=== PATIENT | female | born 1980 | race Caucasian/White ===

== ENCOUNTER 2018-02-14 08:37 | Emergency (ER) | payer SELFPAY ==
[~2018-02-14] VITALS: Ht 180.3 cm; Wt 114.0 kg
[~2018-02-14 08:37] MED LIST: BACT2OIN TOPICAL; BACT800T5 PO; DOXY100C PO
[2018-02-14 08:44] VITALS: BP 168/106; PULSE 88; RESP 16; TEMP 98.1; O2SAT 97
[2018-02-14] MEDS ORDERED: SODIUM CHLOR 0.9% 1000 ML INJ 1,000 ML IV ONE (09:08)
[2018-02-14] MEDS ORDERED: METOCLOPRAMIDE HCL 10 MG/2 ML VIAL IVP ONE (09:15)
[2018-02-14] MEDS ORDERED: diphenhydrAMINE HCL 50 MG/ML VIAL IVP ONE (09:15)
[2018-02-14] MEDS ORDERED: SODIUM CHLORIDE 0.9% FLUSH 10 ML FLUSH IVF PRN (09:15)
[2018-02-14] MEDS ORDERED: KETOROLAC TROMETHAMINE 30 MG/ML (IVP) VIAL IVP ONE (09:15)
--- NOTE | 2018-02-14 09:24 | PD ---
HPI Chief Complaint: Numbness/Tingling Time Seen by Provider: 08:51 Travel History International Travel<30 days: No Contact w/Intl Traveler<30days: No Traveled to known affect area: No History of Present Illness HPI The patient is a 37-year-old female who presents to the emergency department via private vehicle after she was electrocuted on Tuesday. The patient states she got out of the pool on Tuesday at approximately 6:30 PM and went to flip a switch at the pool pump, she states she struck another box and felt electrocution to the third digit of the right hand. The patient denies any burn renetta over the affected area, however, has had some numbness and tingling of the third digit of the right hand that goes up the right arm. She is also complained of a mild headache which will not alleviated self with Excedrin at home. She denies any weakness of the right upper extremity, denies any burn renetta to the right upper extremity denies any burn hein or exit wounds to the feet or other extremities. Symptoms are moderate. She denies any arrhythmia, shortness of breath, or chest pain. Symptoms are moderate. PFSH Past Medical History Anemia: Yes Asthma: Yes (ASTHMA) Diabetes: No Diminished Hearing: No Reproductive: Yes (FALLOPIAN TUBE SURGERY ON LEFT/CYST REMOVED O L OVARY) Respiratory: Yes (ASTHMA CHILD) ?: Not : 1 Para: 1 Past Surgical History Gynecologic Surgery: Yes (LEFT FALLOPIAN TUBE SURGERY FOR CYST) Hysterectomy: Yes (PARTIAL ) Joint Replacement: No Oral Surgery: Yes (TONSILLECTOMY) Pacemaker: No Tonsillectomy: Yes Other Surgery: Yes (PARTIAL HYSTERECTOMY) Social History Alcohol Use: Yes (SOCIALLY) Tobacco Use: Yes (1/2 TO FULL PPD) Substance Use: No Allergies-Medications (Allergen,Severity, Reaction): Coded Allergies: *MDRO Multi-Drug Resistant Organism (Verified Adverse Reaction, Unknown, 07/23/16) 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) Reported Meds & Prescriptions Reported Meds & Active Scripts Active Doxycycline Hyclate 100 Mg Cap 100 Mg PO BID 7 Days Bactrim DS (Sulfamethoxazole-Trimethoprim) 800-160 Mg Tab 1 Tab PO BID Bactroban Topical (Mupirocin) 2% Oint 1 Appl TOPICAL BID Review of Systems Except as stated in HPI: all other systems reviewed are Neg Eyes: No: Blurred Vision HENT: Positive: Headaches, No: Neck Pain Cardiovascular: No: Chest Pain or Discomfort, Palpitations, Irregular Rhythm Respiratory: No: Shortness of Breath Gastrointestinal: No: Nausea, Vomiting, Abdominal Pain Musculoskeletal: Positive: Pain, No: Edema Skin: No Other (Denies any visible burn renetta or open skin at the point of entry on the third digit right hand) Neurologic: Positive: Paresthesia, Sensory Disturbance Physical Exam Narrative GENERAL: Awake, alert, pleasant 37-year-old female who appears her stated age and is in no acute respiratory distress. SKIN: Focused skin assessment warm/dry. HEAD: Atraumatic. Normocephalic. EYES: Pupils equal and round. No scleral icterus. No injection or drainage. ENT: No nasal bleeding or discharge. Mucous membranes pink and moist. NECK: Trachea midline. No JVD. CARDIOVASCULAR: Regular rate and rhythm. No murmur appreciated. RESPIRATORY: No accessory muscle use. Clear to auscultation. Breath sounds equal bilaterally. MUSCULOSKELETAL: No obvious deformities. No clubbing. No cyanosis. No edema. No visible burn wound to the third digit right hand. The feet were inspected, there were no visible burn wounds or exit wounds. Positive right radial pulse. Intrinsic hand muscle of the right hand are intact. NEUROLOGICAL: Awake and alert. No obvious cranial nerve deficits. Motor grossly within normal limits. Normal speech. Sensation is intact on the ulna and radial aspect of the right hand, mild decreased sensation to soft touch over the volar aspect of the third digit, however, it is present on the second digit and fourth digit. PSYCHIATRIC: Appropriate mood and affect; insight and judgment normal. Data Data Last Documented VS Vital Signs Date Time Temp Pulse Resp B/P (MAP) Pulse Ox O2 Delivery O2 Flow Rate FiO2 02/14/18 08:44 98.1 88 16 168/106 (126) 97 Orders Orders Complete Blood Count With Diff (02/14/18 09:08) Comprehensive Metabolic Panel (02/14/18 09:08) Ecg Monitoring (02/14/18 09:08) Iv Access Insert/Monitor (02/14/18 09:08) Oximetry (02/14/18 09:08) Sodium Chloride 0.9% Flush (Ns Flush) (02/14/18 09:15) Ketorolac Inj (Toradol Inj) (02/14/18 09:15) Diphenhydramine Inj (Benadryl Inj) (02/14/18 09:15) Metoclopramide Inj (Reglan Inj) (02/14/18 09:15) Sodium Chlor 0.9% 1000 Ml Inj (Ns 1000 M (02/14/18 09:08) Creatine Kinase (Cpk) (02/14/18 09:08) Electrocardiogram (02/14/18 ) Labs Laboratory Tests Test 02/14/18 09:15 White Blood Count 5.3 TH/MM3 Red Blood Count 4.84 MIL/MM3 Hemoglobin 14.8 GM/DL Hematocrit 43.6 % Mean Corpuscular Volume 90.0 FL Mean Corpuscular Hemoglobin 30.7 PG Mean Corpuscular Hemoglobin Concent 34.1 % Red Cell Distribution Width 13.4 % Platelet Count 202 TH/MM3 Mean Platelet Volume 9.5 FL Neutrophils (%) (Auto) 67.4 % Lymphocytes (%) (Auto) 23.3 % Monocytes (%) (Auto) 6.9 % Eosinophils (%) (Auto) 1.9 % Basophils (%) (Auto) 0.5 % Neutrophils # (Auto) 3.6 TH/MM3 Lymphocytes # (Auto) 1.2 TH/MM3 Monocytes # (Auto) 0.4 TH/MM3 Eosinophils # (Auto) 0.1 TH/MM3 Basophils # (Auto) 0.0 TH/MM3 CBC Comment DIFF FINAL Differential Comment Blood Urea Nitrogen 10 MG/DL Creatinine 1.00 MG/DL Random Glucose 92 MG/DL Total Protein 7.5 GM/DL Albumin 3.9 GM/DL Calcium Level 9.0 MG/DL Alkaline Phosphatase 90 U/L Aspartate Amino Transf (AST/SGOT) 39 U/L Alanine Aminotransferase (ALT/SGPT) 49 U/L Total Bilirubin 0.5 MG/DL Sodium Level 141 MEQ/L Potassium Level 3.9 MEQ/L Chloride Level 107 MEQ/L Carbon Dioxide Level 24.2 MEQ/L Anion Gap 10 MEQ/L Estimat Glomerular Filtration Rate 63 ML/MIN Total Creatine Kinase 192 U/L MDM Medical Decision Making Medical Screen Exam Complete: Yes Emergency Medical Condition: Yes Medical Record Reviewed: Yes Interpretation(s) EKG reveals normal sinus rhythm with a rate of 76. Nonspecific T wave changes. Laboratory Tests Test 02/14/18 09:15 White Blood Count 5.3 TH/MM3 Red Blood Count 4.84 MIL/MM3 Hemoglobin 14.8 GM/DL Hematocrit 43.6 % Mean Corpuscular Volume 90.0 FL Mean Corpuscular Hemoglobin 30.7 PG Mean Corpuscular Hemoglobin Concent 34.1 % Red Cell Distribution Width 13.4 % Platelet Count 202 TH/MM3 Mean Platelet Volume 9.5 FL Neutrophils (%) (Auto) 67.4 % Lymphocytes (%) (Auto) 23.3 % Monocytes (%) (Auto) 6.9 % Eosinophils (%) (Auto) 1.9 % Basophils (%) (Auto) 0.5 % Neutrophils # (Auto) 3.6 TH/MM3 Lymphocytes # (Auto) 1.2 TH/MM3 Monocytes # (Auto) 0.4 TH/MM3 Eosinophils # (Auto) 0.1 TH/MM3 Basophils # (Auto) 0.0 TH/MM3 CBC Comment DIFF FINAL Differential Comment Blood Urea Nitrogen 10 MG/DL Creatinine 1.00 MG/DL Random Glucose 92 MG/DL Total Protein 7.5 GM/DL Albumin 3.9 GM/DL Calcium Level 9.0 MG/DL Alkaline Phosphatase 90 U/L Aspartate Amino Transf (AST/SGOT) 39 U/L Alanine Aminotransferase (ALT/SGPT) 49 U/L Total Bilirubin 0.5 MG/DL Sodium Level 141 MEQ/L Potassium Level 3.9 MEQ/L Chloride Level 107 MEQ/L Carbon Dioxide Level 24.2 MEQ/L Anion Gap 10 MEQ/L Estimat Glomerular Filtration Rate 63 ML/MIN Total Creatine Kinase 192 U/L Differential Diagnosis Differential diagnosis includes electrocution, burn, rhabdomyolysis, arrhythmia , neuropathy, distal paresthesia. Narrative Course IV was established, labs are drawn and sent, and the patient was placed on cardiac telemetry monitoring. The patient was administered Benadryl, Reglan, Toradol, and IV fluids for her headache. CPK level was sent to lab. EKG was ordered and interpreted. CBC, CMP, and CPK are unremarkable. EKG is normal. The patient has had no evidence of arrhythmia Diagnosis Primary Impression: Electric shock Qualified Codes: T75.4XXA - Electrocution, initial encounter Patient Instructions: General Instructions Additional Instructions: Please provide the patient a copy of her labs at discharge. Follow-up with a primary physician. Return if symptoms worsen or progress. Med/Other Pt SpecificInfo: No Change to Meds Disposition: 01 DISCHARGE HOME Condition: Stable Lavelle Pineda MD Feb 14, 2018 09:24
[2018-02-14 10:18] LABS: AUTOMATED NEUTROPHIL # 3.6 TH/MM3 (1.8-7.7); BASOPHIL % 0.5 % (0.0-2.0); EOSINOPHIL # 0.1 TH/MM3 (0-0.4); EOSINOPHIL % 1.9 % (0.0-4.0); HEMATOCRIT 43.6 % (35.0-46.0); HEMOGLOBIN 14.8 GM/DL (11.6-15.3); LYMPH % 23.3 % (9.0-44.0); LYMPHOCYTE # 1.2 TH/MM3 (1.0-4.8); MEAN CORPUSCULAR HEMOGLOBIN 30.7 PG (27.0-34.0); MEAN CORPUSCULAR HGB CONC 34.1 % (32.0-36.0); MEAN PLATELET VOLUME 9.5 FL (7.0-11.0); MONO % 6.9 % (0.0-8.0); MONOCYTE # 0.4 TH/MM3 (0-0.9); NEUT % 67.4 % (16.0-70.0); PLATELET COUNT 202 TH/MM3 (150-450); RED BLOOD COUNT 4.84 MIL/MM3 (4.00-5.30); RED CELL DISTRIBUTION WIDTH 13.4 % (11.6-17.2); WHITE BLOOD COUNT 5.3 TH/MM3 (4.0-11.0)
[2018-02-14 10:35] LABS: ALT (GPT) 49 U/L (10-53)
[2018-02-14 10:37] LABS: ALKALINE PHOSPHATASE 90 U/L (45-117); TOTAL BILIRUBIN ADULT 0.5 MG/DL (0.2-1.0); TOTAL PROTEIN 7.5 GM/DL (6.4-8.2)
[2018-02-14 10:51] LABS: ALBUMIN 3.9 GM/DL (3.4-5.0); AST (GOT) 39 U/L (15-37); BICARBONATE 24.2 MEQ/L (21.0-32.0); BLOOD UREA NITROGEN 10 MG/DL (7-18); CHLORIDE 107 MEQ/L (98-107); GLOMERULAR FILTRATION RATE 63 ML/MIN (>89); GLUCOSE,RANDOM 92 MG/DL (74-106); SODIUM (NA) 141 MEQ/L (136-145)
[2018-02-14 13:50] VITALS: O2SAT 97
--- NOTE | 2018-02-14 14:03 | EKG ---
Date Performed: 02/14/2018 Time Performed: 08:59:32 PTAGE: 37 years EKG: Sinus rhythm NONSPECIFIC T-WAVE ABNORMALITY BORDERLINE ECG No significant change from prior electrocardiogram. PREVIOUS TRACING : 11/16/2012 11.31 DOCTOR: Siva Mendez Interpretating Date/Time 02/14/2018 14:01:34
== END 2018-02-14 13:52 | disposition home or self-care (01) ==
LOC: NEPC 08:37
DX: T75.4XXA Electrocution, initial encounter (principal); W86.8XXA Exposure to other electric current, initial encounter; R51 Headache; F17.200 Nicotine dependence, unspecified, uncomplicated
CPT/HCPCS: 80053; 82550; 85025; 93005; 96374; 96375; 99284; J1200; J1885; J2765; J7030